=== PATIENT | male | born 1995 | race Caucasian/White ===

== ENCOUNTER 2018-06-16 17:35 | Emergency (ER) | END 2018-06-16 21:42 | disposition home or self-care (01) ==

== ENCOUNTER 2018-06-18 14:03 | Emergency (ER) | END 2018-06-18 15:08 | disposition home or self-care (01) ==

== ENCOUNTER 2018-07-07 18:21 | Emergency (ER) | END 2018-07-07 21:16 | disposition home or self-care (01) ==

== ENCOUNTER 2018-12-16 11:51 | Emergency (ER) | payer SELFPAY ==
[~2018-12-16] VITALS: Ht 182.9 cm; Wt 123.0 kg
[~2018-12-16 11:51] MED LIST: NPH10OT LEFT EAR
[2018-12-16 11:59] VITALS: BP 148/66; PULSE 76; RESP 18; Ht 182.9 cm; Wt 123.0 kg
--- NOTE | 2018-12-16 13:48 | ERD ---
ER Documentation Chief Complaint Chief Complaint right 1st finger lac HPI 23-year-old male presenting with laceration to right middle finger. Patient states he sustained this 1 cutting on a blade earlier today. His last tetanus shot was 2 years ago. [id number]. Denies any numbness or tingling. Has not been any medication on the site. Denies of the medical problems or allergies to medications. Surgical history denies. Social history denies ROS All systems reviewed and are negative except as per history of present illness. Medications Home Meds Active Scripts Neomycin/Polymyxin/Hydrocort* (Cortisporin* Otic) 10 Ml Susp, 4 DROP LEFT EAR QID for 7 Days, EA Prov:KAMRYN PALENCIA PA-C 07/07/18 Allergies Allergies: Coded Allergies: No Known Allergy (Unverified , 07/07/18) PMhx/Soc Medical and Surgical Hx: pt denies Medical Hx, pt denies Surgical Hx Hx Alcohol Use: Yes Hx Substance Use: No Hx Tobacco Use: No Smoking Status: Never smoker FmHx Family History: No diabetes, No coronary disease, No other Physical Exam Vitals Vital Signs Date Temp Pulse Resp B/P (MAP) Pulse Ox O2 O2 Flow FiO2 Time Delivery Rate 12/16/18 98.3 76 18 148/66 98 11:59 (93) Physical Exam GENERAL: The patient is well-appearing, well-nourished, in no acute distress CHEST: Clear to auscultation bilaterally. There are no rales, wheezes or rhonchi. HEART: Regular rate and rhythm. No murmurs, clicks, rubs or gallops. EXTREMITIES: Patient able to isolate the DIP and PIP joint of the right middle finger. compartments soft NEUROLOGIC: Motor strength in all 4 extremities with 5 out of 5 strength. Sensation grossly intact. SKIN: Flap laceration noted to the distal tip of the middle finger on the right hand. No active bleeding. Procedures/MDM ER course: Wound cleaned. Dermbond applied. MDM: 23-year-old male presenting with laceration to fingertip. Dermabond was applied in ED. Patient denies any tendon or ligament rupture. There is no retained foreign body. He does not require tetanus as he is up-to-date. Denies other medical problems. NKDA. Surgical history denies. Social history Departure Diagnosis: Primary Impression: Laceration Condition: Stable Patient Instructions: Laceration, Hand Referrals: [facility] YOU HAVE RECEIVED A MEDICAL SCREENING EXAM AND THE RESULTS INDICATE THAT YOU DO NOT HAVE A CONDITION THAT REQUIRES URGENT TREATMENT IN THE EMERGENCY DEPARTMENT. FURTHER EVALUATION AND TREATMENT OF YOUR CONDITION CAN WAIT UNTIL YOU ARE SEEN IN YOUR DOCTORS OFFICE WITHIN THE NEXT 1-2 DAYS. IT IS YOUR RESPONSIBILITY TO MAKE AN APPOINTMENT FOR FOLOW-UP CARE. IF YOU HAVE A PRIMARY DOCTOR --you should call your primary doctor and schedule an appointment IF YOU DO NOT HAVE A PRIMARY DOCTOR YOU CAN CALL OUR PHYSICIAN REFERRAL HOTLINE AT IF YOU CAN NOT AFFORD TO SEE A PHYSICIAN YOU CAN CHOSE FROM THE FOLLOWING [facility] [address] [facility]. [facility] [address] [facility] [facility] [address] [facility] [facility] [address] [facility]. [facility] [address] [facility]. [facility]. [address] Additional Instructions: FOLLOW UP WITH YOUR PRIMARY CARE PHYSICIAN TOMORROW.Return to this facility if you are not improving as expected. ANGELA ARAUJO PA-C Dec 16, 2018 13:48
== END 2018-12-16 14:52 | disposition home or self-care (01) ==
LOC: FTE 11:51
DX: S61.212A Laceration without foreign body of right middle finger without damage to nail, initial encounter (principal); W26.8XXA Contact with other sharp object(s), not elsewhere classified, initial encounter; Y92.9 Unspecified place or not applicable